=== PATIENT | female | born 1985 ===

== ENCOUNTER 2017-04-23 16:18 | Emergency (ER) | payer OTHER ==
[2017-04-23 16:26] VITALS: BP 122/60; PULSE 78; RESP 18; TEMP 98.5; O2SAT 99
[2017-04-23] MEDS ORDERED: DiphenhydrAMINE 50 mg/ml Inj ONE (16:59)
[2017-04-23] MEDS ORDERED: DiphenhydrAMINE 50 mg/ml Inj IVP STA (17:17)
[2017-04-23] MEDS ORDERED: Sodium Chloride 0.9% 1,000 ML IV SCH (17:30)
--- NOTE | 2017-04-23 17:42 | ED PDOC ---
HPI: Headache Time Seen by Provider: 04/23/17 16:30 Chief Complaint (Nursing): Headache History Per: Patient, Family History/Exam Limitations: no limitations Current Symptoms Are (Timing): Still Present Additional Complaint(s): 30yo F w/ PMH of migraine headaches, presents to the ED for evaluation of constant throbbing b/l temporal headache x 1 week with associated photophobia, and nausea, reports taking tylenol with some relief. Denies acute injury to head , dizziness, URI, numbness/tingling in UE/LE, CP, SOB, fever, chills, foreign travel, change in mentation/speech or gait. Reports having similar headaches in the past. Past Medical History Vital Signs: Last Vital Signs Temp 98.5 F 04/23/17 16:21 Pulse 78 04/23/17 16:21 Resp 18 04/23/17 16:21 BP 122/60 04/23/17 16:21 Pulse Ox 99 04/23/17 16:21 - Medical History PMH: Migraine - Family History Family History: States: Unknown Family Hx - Home Medications Home Medications: Ambulatory Orders Medication Instructions Recorded Acetaminophen/Butalbital/Caf 1 tab PO TID PRN #30 tab 04/21/15 [Fioricet] Naproxen 500 mg PO BID #30 tab 04/21/15 Azithromycin [Zithromax Z-Vinnie] 250 mg PO DAILY #1 packet 12/05/15 Ibuprofen [Motrin] 600 mg PO Q6 PRN #15 tab 12/05/15 Metoclopramide HCl [Reglan] 10 mg PO QID PRN #20 tablet 04/23/17 Naproxen 500 mg PO BID #30 tab 04/23/17 - Allergies Allergies/Adverse Reactions: Allergies Allergy/AdvReac Type Severity Reaction Status Date / Time No Known Allergies Allergy Verified 04/23/17 16:21 Review of Systems Constitutional: Positive for: Malaise. Negative for: Fever, Chills, Weakness Cardiovascular: Negative for: Chest Pain, Palpitations, Edema Respiratory: Negative for: Cough, Shortness of Breath, Wheezing Gastrointestinal: Positive for: Nausea. Negative for: Vomiting, Abdominal Pain , Constipation Musculoskeletal: Negative for: Neck Pain, Shoulder Pain, Back Pain Skin: Negative for: Rash, Lesions, Jaundice Neurological: Positive for: Headache. Negative for: Weakness, Numbness, Confusion, Dizziness Physical Exam - Physical Exam Comments: GENERAL APPEARANCE: Patient is awake, alert, oriented x 3, in no acute distress. Patient is smiling and talking on her cell phone. SKIN: Warm, dry; (-) cyanosis; (-) rash. HEAD: (-) scalp swelling or tenderness, (-) temporal artery tenderness. EYES: (-) conjunctival pallor, (-) scleral icterus. ENMT: (-) sinus tenderness; mucous membranes moist. NECK: (-) tenderness, (-) stiffness, (-) meningismus, (-) lymphadenopathy. CHEST AND RESPIRATORY: (-) rales, (-) rhonchi, (-) wheezes; breath sounds equal bilaterally. HEART AND CARDIOVASCULAR: (-) irregularity; (-) murmur, (-) gallop. ABDOMEN AND GI: Soft; (-) tenderness. EXTREMITIES: (-) deformity. NEURO AND PSYCH: Mental status as above. case management coordinator: Pupils equal and reactive; EOMI; (-) facial asymmetry; tongue and uvula midline. Strength and DTRs symmetric. Babinski normal bilaterally. - ECG O2 Sat by Pulse Oximetry: 99 Medical Decision Making Medical Decision Makinyo F w/ PMH of migraine headaches, presents to the ED for evaluation of constant throbbing b/l temporal headache x 1 week with associated photophobia, and nausea. Patient medicated with Toradol 30 mg IV, Reglan 10 mg IV, Benadryl 25 mg IV and normal saline 1 L bolus. On reevaluation, patient reported significant improvement of her headache. Repeat exam shows no focal neurologic deficit, no signs of meningismus. Based on history, exam and ED course, plan will be for outpatient follow-up. Instructed to follow up with primary care physician or the clinic in 1-2 days without fail. Advised to take medication as prescribed. Return to the emergency room at any time for any new or worsening symptoms. Patient states she fully agrees with and understands discharge instructions. States that she agrees with the plan and disposition. Verbalized and repeated discharge instructions and plan. I have given the patient opportunity to ask any additional questions. Disposition - Clinical Impression Clinical Impression: Headache - Patient ED Disposition Is Patient to be Admitted: No Counseled Patient/Family Regarding: Diagnosis, Need For Followup, Rx Given - Disposition Referrals: [facility] [Outside] Disposition: Routine/Home Disposition Time: 18:15 Condition: IMPROVED Additional Instructions: Thank you for letting us take care of you today. You were treated for headache likely migraine. The emergency medical care you received today was directed at your acute symptoms. If you were prescribed any medication, please fill it and take as directed. It may take several days for your symptoms to resolve. Return to the Emergency Department if your symptoms worsen, do not improve, or if you have any other problems. Please contact your doctor in 2 days for re-evaluation and follow up / or call one of the physicians/clinics you have been referred to that are listed on the Patient Visit Information form that is included in your discharge packet. Bring any paperwork you were given at discharge with you along with any medications you are taking to your follow up visit. Our treatment cannot replace ongoing medical care by a primary care provider (PCP) outside of the emergency department. Thank you for allowing the [facility] team to be part of your care today. Prescriptions: Metoclopramide HCl [Reglan] 10 mg PO QID PRN #20 tablet PRN Reason: Headache Naproxen 500 mg PO BID #30 tab Instructions: Migraine Headache (ED), Acute Headache (ED) Forms: icomply (Telugu), [facility] ED School/Work Excuse Print Language: LIBERIAN - PA / LEGAL RECORDS MANAGER / Resident Statement /DO has reviewed & agrees with the documentation as recorded.
== END 2017-04-23 18:52 | disposition home or self-care (01) ==
LOC: H.ER 16:18
DX: R51 Headache (principal); H53.149 Visual discomfort, unspecified
CPT/HCPCS: 81025; 96361; 96374; 96375; 99283; J1200; J1885; J2765; J7040